=== PATIENT | male | born 1940 | race Caucasian/White ===

== ENCOUNTER 2017-09-25 13:11 | Emergency (ER) | payer OTHER ==
[2017-09-25 14:30] LABS: Absolute Lymphocytes (CBC) 1.7 K/uL (0.7-4.9); Absolute Monocytes 0.4 K/uL (0.1-1.3); Eosinophils % 0.9 % (0-4.4); Hematocrit 43.3 % (39.6-49.0); Lymphocytes % 27.6 % (15.3-44.8); MCH 30.4 pg (27.0-35.0); MCV 91.3 fL (80-100); MPV 8.5 fL (7.6-11.3); Monocytes % 6.9 % (3.3-12.3); RBC Red Blood Cell Count 4.75 M/uL (4.33-5.43)
[2017-09-25 14:41] LABS: Bicarbonate 26 mEq/L (21-31); Glucose Level 104 mg/dL (65-120); Potassium 3.9 mEq/L (3.6-5.0); Sodium Level 140 mEq/L (135-145)
[2017-09-25 14:42] LABS: BUN Blood Urea Nitrogen 14 mg/dL (6-20)
--- NOTE | 2017-09-25 14:51 | RAD REPORT ---
EXAM DESCRIPTION: RAD - Chest Single View - 09/25/2017 2:31 pm CLINICAL HISTORY: Chest pain, right arm pain COMPARISON: None. TECHNIQUE: AP portable chest image was obtained 1423 hours . FINDINGS: Lungs are clear. Heart and vasculature are normal. No measurable pleural effusion and no p neumothorax. No gross bony abnormality seen. No acute aortic findings suspected. IMPRESSION: No acute cardiopulmonary process.
[2017-09-25] MEDS ORDERED: KETOROLAC 30 MG/ML INJ ONE (16:15)
--- NOTE | 2017-09-25 16:30 | ER ---
Nurse's Notes [facility] Name: Cooper Jacinto Age: 76 yrs Sex: Male : 1940 Arrival Date: 09/25/2017 Time: 13:13 Bed 16 Private MD: Diagnosis: Arthropathies in other specified diseases classified elsewhere, right hand Presentation: 09/25 13:30 Presenting complaint: Patient states: R arm pain that began 2.5 hours ago with tingling ss to R hand. Transition of care: patient was not received from another setting of care. Onset of symptoms was September 25, 2017. Care prior to arrival: None. 13:30 Method Of Arrival: Ambulatory ss 13:30 Acuity: RHONA 3 ss Historical: - Allergies: 13:32 No Known Allergies; ss - Home Meds: 13:35 budesonide 3 mg oral CECX 1 caps three times a day [Active]; omeprazole 40 mg Oral cpDR rb1 1 cap once daily [Active]; CoQ-10 100 mg oral cap daily [Active]; magnesium oxide 250 mg Oral tab 1 tab daily [Active]; rosuvastatin 10 mg oral tab 1 tab once daily [Active]; tamsulosin 0.4 mg oral cp24 1 cap once daily [Active]; aspirin 81 mg Oral TbEC 1 tab once daily [Active]; levothyroxine 25 mcg tab 1 tab once daily [Active]; - PMHx: 13:35 Hypothyroidism; High Cholesterol; borderline Diabetic; rb1 - PSHx: 13:35 back; Vasectomy; rb1 - Immunization history:: Adult Immunizations unknown. - Social history:: Smoking status: Patient/guardian denies using tobacco. Screenin:35 Abuse screen: Denies threats or abuse. Nutritional screening: No deficits noted. rb1 Tuberculosis screening: No symptoms or risk factors identified. Fall Risk None identified. Assessment: 13:35 General: Appears in no apparent distress. comfortable, well groomed, Behavior is calm, rb1 cooperative, Denies fever. Pain: Complains of pain in around both clavicles, left chest, and left lower back Pain radiates to left upper quadrant and left lower quadrant Pain currently is 5 out of 10 on a pain scale. Pain began 2-3 days ago. Neuro: Level of Consciousness is awake, alert, obeys commands, Oriented to person, place, time, situation. Neuro: Reports headache frontal area, numbness in right arm and left arm since 2-3 days ago. Neuro: Reports Pt. stated, "I was tieing a bag of trash about 3 weeks ago and pulled the muscles in my upper chest and have been sore all around my neck ever since then.". Cardiovascular: Capillary refill < 3 seconds is brisk in bilateral fingers. Respiratory: Airway is patent Respiratory effort is even, unlabored, Respiratory pattern is regular, symmetrical. GI: Reports diarrhea, since x 1 year, has taken medication for it for the last 10 months. : Reports urinary frequency, Due to enlarged prostate. Derm: Skin is pink, warm \\T\\ dry. Musculoskeletal: Range of motion: intact in all extremities. 14:30 Reassessment: Patient appears in no apparent distress at this time. No changes from rb1 previously documented assessment. 15:29 Reassessment: Patient appears in no apparent distress at this time. Patient and/or rb1 family updated on plan of care and expected duration. Pain level reassessed. Patient is alert, oriented x 3, equal unlabored respirations, skin warm/dry/pink. 16:28 Reassessment: Patient appears in no apparent distress at this time. No changes from rb1 previously documented assessment. Vital Signs: 13:32 BP 138 / 97; Pulse 63; Resp 17; Temp 98.2; Pulse Ox 98% on R/A; Weight 74.84 kg (R); ss Height 5 ft. 9 in. (175.26 cm); Pain 5/10; 14:30 BP 132 / 89; Pulse 65; Resp 18; Pulse Ox 99% on R/A; rb1 15:30 BP 163 / 88; Pulse 52; Resp 17; Pulse Ox 98% on R/A; rb1 16:28 BP 161 / 83; Pulse 54; Resp 17; Pulse Ox 96% on R/A; Pain 3/10; rb1 13:32 Body Mass Index 24.37 (74.84 kg, 175.26 cm) ED Course: 13:13 Patient arrived in ED. as 13:32 Triage completed. ss 13:32 Arm band placed on left wrist. ss 13:35 Lara Victoria, RN is Primary Nurse. rb1 13:35 Patient has correct armband on for positive identification. Placed in gown. Bed in low rb1 position. Call light in reach. Side rails up X 1. quality assurance monitor body on. Pulse ox on. NIBP on. 13:35 Patient maintains SpO2 saturation greater than 95% on room air. rb1 13:49 Ayad Sinclair MD is Attending Physician. gs 14:28 X-ray completed. Portable x-ray completed in exam room. Patient tolerated procedure kp1 well. 14:41 Inserted saline lock: 20 gauge in right antecubital area, using aseptic technique. rb1 Blood collected. IV inserted by ell tutor Willian. 16:29 Tomy De Leon MD is Referral Physician. gs 16:56 No provider procedures requiring assistance completed. IV discontinued, intact, rb1 bleeding controlled, No redness/swelling at site. Pressure dressing applied. Administered Medications: 16:00 Drug: TORadol 15 mg Route: IVP; Site: right antecubital; rb1 16:15 Follow up: Response: No adverse reaction; Pain is decreased rb1 Outcome: 16:30 Discharge ordered by MD. gs 16:56 Discharged to home ambulatory, with family. rb1 16:56 Condition: stable 16:56 Discharge instructions given to patient, Instructed on discharge instructions, follow up and referral plans. medication usage, Demonstrated understanding of instructions, follow-up care, medications, Prescriptions given X 1. 16:57 Patient left the ED. rb1 Signatures: Sydnee Dumas Shelby, RN RN Lara Victoria RN RN rb1 Radha Croft kp1 Ayad Sinclair MD MD gs Corrections: (The following items were deleted from the chart) 16:10 15:30 BP 166 / 93; Pulse 52bpm; Resp 17bpm; Pulse Ox 98% RA; rb1 rb1
--- NOTE | 2017-09-25 16:30 | EDPHYS ---
Physician Documentation [facility] Name: Cooper Jacinto Age: 76 yrs Sex: Male : 1940 Arrival Date: 09/25/2017 Time: 13:13 Bed 16 Private MD: ED Physician Ayad Sinclair HPI: 09/25 15:50 This 76 yrs old Male presents to ER via Ambulatory with complaints of Hand gs Pain. 15:50 The patient or guardian reports pain. The complaints affect the right hand diffusely. gs Context: The problem was sustained at home. Onset: The symptoms/episode began/occurred 2 day(s) ago, and became worse and became persistent. Modifying factors: the symptoms are aggravated by movement, closing gripping hand. Associated signs and symptoms: Pertinent negatives: cyanosis distally, decreased sensation distally, numbness distally. Severity of symptoms: At their worst the symptoms were moderate, in the emergency department the symptoms are unchanged. The patient has experienced a previous episode. The patient has not recently seen a physician. Historical: - Allergies: 13:32 No Known Allergies; ss - Home Meds: 13:35 budesonide 3 mg oral CECX 1 caps three times a day [Active]; omeprazole 40 mg Oral cpDR rb1 1 cap once daily [Active]; CoQ-10 100 mg oral cap daily [Active]; magnesium oxide 250 mg Oral tab 1 tab daily [Active]; rosuvastatin 10 mg oral tab 1 tab once daily [Active]; tamsulosin 0.4 mg oral cp24 1 cap once daily [Active]; aspirin 81 mg Oral TbEC 1 tab once daily [Active]; levothyroxine 25 mcg tab 1 tab once daily [Active]; - PMHx: 13:35 Hypothyroidism; High Cholesterol; borderline Diabetic; rb1 - PSHx: 13:35 back; Vasectomy; rb1 - Immunization history:: Adult Immunizations unknown. - Social history:: Smoking status: Patient/guardian denies using tobacco. ROS: 15:50 Cardiovascular: Positive for chest pain, last pm brief mild. gs 15:50 All other systems are negative. Exam: 15:50 Head/Face: Normocephalic, atraumatic. Eyes: Pupils equal round and reactive to light, gs extra-ocular motions intact. Lids and lashes normal. Conjunctiva and sclera are non-icteric and not injected. Cornea within normal limits. Periorbital areas with no swelling, redness, or edema. ENT: Nares patent. No nasal discharge, no septal abnormalities noted. Tympanic membranes are normal and external auditory canals are clear. Oropharynx with no redness, swelling, or masses, exudates, or evidence of obstruction, uvula midline. Mucous membranes moist. Neck: Trachea midline, no thyromegaly or masses palpated, and no cervical lymphadenopathy. Supple, full range of motion without nuchal rigidity, or vertebral point tenderness. No Meningismus. Chest/axilla: Normal chest wall appearance and motion. Nontender with no deformity. No lesions are appreciated. Cardiovascular: Regular rate and rhythm with a normal S1 and S2. No gallops, murmurs, or rubs. Normal PMI, no JVD. No pulse deficits. Respiratory: Lungs have equal breath sounds bilaterally, clear to auscultation and percussion. No rales, rhonchi or wheezes noted. No increased work of breathing, no retractions or nasal flaring. Abdomen/GI: Soft, non-tender, with normal bowel sounds. No distension or tympany. No guarding or rebound. No evidence of tenderness throughout. Back: No spinal tenderness. No costovertebral tenderness. Full range of motion. Skin: Warm, dry with normal turgor. Normal color with no rashes, no lesions, and no evidence of cellulitis. Neuro: Awake and alert, GCS 15, oriented to person, place, time, and situation. Cranial nerves II-XII grossly intact. Motor strength 5/5 in all extremities. Sensory grossly intact. Cerebellar exam normal. Normal gait. 15:50 Constitutional: The patient appears alert, awake. 16:28 ECG was reviewed by the Attending Physician. gs 16:28 Musculoskeletal/extremity: ROM: limited active range of motion due to pain, limited passive range of motion due to pain, in the right hand, Circulation is intact in all extremities. Vital Signs: 13:32 BP 138 / 97; Pulse 63; Resp 17; Temp 98.2; Pulse Ox 98% on R/A; Weight 74.84 kg (R); ss Height 5 ft. 9 in. (175.26 cm); Pain 5/10; 14:30 BP 132 / 89; Pulse 65; Resp 18; Pulse Ox 99% on R/A; rb1 15:30 BP 163 / 88; Pulse 52; Resp 17; Pulse Ox 98% on R/A; rb1 16:28 BP 161 / 83; Pulse 54; Resp 17; Pulse Ox 96% on R/A; Pain 3/10; rb1 13:32 Body Mass Index 24.37 (74.84 kg, 175.26 cm) ss MDM: 14:02 Patient medically screened. 16:28 Differential diagnosis: contusion, tendonitis, arthritis. Data reviewed: vital signs, nurses notes. Response to treatment: the patient's symptoms have markedly improved after treatment, and as a result, I will discharge patient. 09/25 14:05 Order name: Basic Metabolic Panel 09/25 14:05 Order name: CBC with Diff 09/25 14:05 Order name: Troponin (emerg Dept Use Only) 09/25 14:39 Order name: CBC with Automated Diff; Complete Time: 15:04 EDMS 09/25 14:41 Order name: Basic Metabolic Panel; Complete Time: 15:04 EDNJ 09/25 14:50 Order name: Troponin (Emerg Dept Use Only); Complete Time: 15:04 EDNJ 09/25 14:05 Order name: XRAY Chest (1 view) 09/25 14:05 Order name: EKG; Complete Time: 14:05 09/25 14:05 Order name: Cardiac monitoring; Complete Time: 14:27 09/25 14:05 Order name: EKG - Nurse/Tech; Complete Time: 16:24 09/25 14:05 Order name: IV Saline Lock; Complete Time: 14:27 09/25 14:05 Order name: Labs collected and sent; Complete Time: 14:27 09/25 14:52 Order name: RAD; Complete Time: 15:04 EDNJ 09/25 14:05 Order name: O2 Per Protocol; Complete Time: 14:27 09/25 14:05 Order name: O2 Sat Monitoring; Complete Time: 14:27 09/25 14:05 Order name: Urine Dipstick-Ancillary (obtain specimen); Complete Time: 16:09 EC:28 Rate is 50 beats/min. Rhythm is regular. PA interval is normal. QRS interval is gs prolonged. T waves are Normal. No ST changes noted. Clinical impression: Abnormal EKG without significant change. Interpreted by me. Administered Medications: 16:00 Drug: TORadol 15 mg Route: IVP; Site: right antecubital; rb1 16:15 Follow up: Response: No adverse reaction; Pain is decreased rb1 Disposition: 09/25/17 16:30 Discharged to Home. Impression: Arthropathies in other specified diseases classified elsewhere, right hand. - Condition is Stable. - Prescriptions for Tylenol- Codeine #4 300-60 mg Oral Tablet - take 1 tablet by ORAL route every 6 hours As needed; 10 tablet. - Medication Reconciliation Form, Thank You Letter, Antibiotic Education, Prescription Opioid Use form. - Follow up: Tomy De Leon MD; When: 2 - 3 days; Reason: Re-evaluation by your physician. Signatures: Dispatcher [employer] EDDeja Mckeon RN RN ss Lara Victoria RN RN rb1 Ayad Sinclair MD MD
--- NOTE | 2017-09-26 11:11 | EKG ---
Test Date: 2017-09-25 Test Time: 16:13:52 [employer] Science Technician: ODIN MEASUREMENT RESULTS: Intervals: Rate: 50 NC: 184 QRSD: 120 QT: 408 QTc: 371 [place]: P: 34 NC: 184 QRS: -39 T: 32 INTERPRETIVE STATEMENTS: Sinus bradycardia Left axis deviation Left ventricular hypertrophy with QRS widening Abnormal ECG No previous ECG available for comparison Electronically Signed On 09-26-17 11:10:09 CDT by Jesus Montez
== END 2017-09-25 16:57 | disposition home or self-care (01) ==
LOC: ER 13:11
DX: M14.80 Arthropathies in other specified diseases classified elsewhere, unspecified site (principal); R73.03 Prediabetes; E03.9 Hypothyroidism, unspecified; E78.00 Pure hypercholesterolemia, unspecified; Z79.82 Long term (current) use of aspirin
CPT/HCPCS: 36415; 71045; 80048; 84484; 85025; 93005; 96374; 99285